=== PATIENT | male | born 1995 | race Hispanic/Latino ===

== ENCOUNTER 2016-07-21 23:05 | Emergency (ER) | payer SELFPAY ==
[~2016-07-21] VITALS: Ht 177.8 cm; Wt 143.9 kg
[~2016-07-21 23:05] MED LIST: ATIVAN1 MG PO; MOTRIN600 MG PO; NO HOME MEDS; PROMETHAZINE HC25 M1 PO; ZANTAC150 MG PO
[2016-07-22] MEDS ORDERED: ZOFRAN ODT4 MG PO (00:58)
[2016-07-22] MEDS ORDERED: ANTIVERT25 MG PO (00:58)
[2016-07-22] MEDS ORDERED: FIORICET 50-301 EACH PO (00:58)
[2016-07-22 01:30] VITALS: BP 137/84
== END 2016-07-22 01:32 | disposition home or self-care (01) ==
LOC: EME 23:05
DX: S09.90XA Unspecified injury of head, initial encounter (principal); S06.0X0A Concussion without loss of consciousness, initial encounter; S00.83XA Contusion of other part of head, initial encounter; R04.0 Epistaxis; Y04.8XXA Assault by other bodily force, initial encounter; Y07.9 Unspecified perpetrator of maltreatment and neglect
CPT/HCPCS: 70450; 70486; 99281; 99283